=== PATIENT | female | born 2000 | race Caucasian/White ===

== ENCOUNTER 2021-04-25 15:45 | Emergency (ER) | payer OTHER ==
[~2021-04-25 15:45] MED LIST: CEFUROXIME500 MG PO; DICLEGIS DR 101 EACH PO; ENSURE CLEAR237 ML PO; FLINTSTONES GU1 EACH PO; HYDROCODON-ACE1 EAC4 PO; IBUPROFEN600 MG PO; OMNICEF 300 MG300 MG PO; PHENERGAN 12.12.5 M1 PO; PHENERGAN 25 MG25 M1 PO; ZOFRAN 4 MG TAB4 MG PO; ZOFRAN4 MG PO
[2021-04-25 17:29] LABS: HEMOGLOBIN 15.6 gm/dl (12.3-15.3); RED BLOOD COUNT 5.11 M/UL (4.00-5.10)
[2021-04-25 17:53] LABS: BUN/CREATININE RATIO 15 (0-10)
[2021-04-25] MEDS ORDERED: IBUPROFEN800 MG PO (21:36)
== END 2021-04-25 21:47 | disposition home or self-care (01) ==
LOC: ER1 15:45
PROVIDERS: Preventive Medicine Occupational Medicine
DX: N83.201 Unspecified ovarian cyst, right side (principal); F17.210 Nicotine dependence, cigarettes, uncomplicated
CPT/HCPCS: 71045; 80053; 81001; 84703; 85025; 85652; 86140; 87086; 96374; 96375; 96376; 99284; J1170; J1200; J2405; J7030; Q9967

== ENCOUNTER 2021-06-17 19:11 | Emergency (ER) | payer OTHER ==
[~2021-06-17 19:11] MED LIST changes: +IBUPROFEN800 MG PO
[2021-06-17 21:42] LABS: RED BLOOD COUNT 4.83 M/UL (4.00-5.10); WHITE BLOOD COUNT 11.2 K/UL (4.5-11.0)
[2021-06-17 22:04] LABS: BUN/CREATININE RATIO 15 (0-10)
== END 2021-06-17 22:34 | disposition home or self-care (01) ==
LOC: ER1 19:11
PROVIDERS: Emergency Medicine
DX: J06.9 Acute upper respiratory infection, unspecified (principal); R10.9 Unspecified abdominal pain; R19.7 Diarrhea, unspecified; R51.9 Headache, unspecified; Z20.822 Contact with and (suspected) exposure to COVID-19; F17.210 Nicotine dependence, cigarettes, uncomplicated; Z91.041 Radiographic dye allergy status
CPT/HCPCS: 80053; 83690; 85025; 99284; U0002

== ENCOUNTER 2021-06-21 21:14 | Emergency (ER) | payer OTHER ==
[2021-06-21] MEDS ORDERED: VENTOLIN HFA 66.7 GM INH (22:39)
[2021-06-21] MEDS ORDERED: MEDROL DOSEPAK 24 MG PO (22:39)
[2021-06-21] MEDS ORDERED: ZOFRAN4 MG PO (22:39)
== END 2021-06-21 22:41 | disposition home or self-care (01) ==
LOC: ER1 21:14
DX: U07.1 COVID-19 (principal); F17.210 Nicotine dependence, cigarettes, uncomplicated; Z91.041 Radiographic dye allergy status
CPT/HCPCS: 99284; U0002